=== PATIENT | female | born 1945 | race African-American/Black ===

== ENCOUNTER 2024-05-17 12:43 | Outpatient (AMB) | payer SELFPAY ==
--- NOTE | 2024-05-17 12:49 | A.OFFVIS_ITS ---
Vital Signs 05/17/24 13:02 Height 5 ft 2 in Weight 141 lb 12.116 oz BMI 25.9 BP 112/60 Blood Pressure Location Lt brachial Position Sitting Pulse 85 Pulse Source Pulse Oximeter Pulse Oximetry (%) 98 Oxygen Delivery Method Room Air Intake Visit Reasons: PMR/LM Intake Note: Patient presents for PMR. Tricot Knitting Machine Operator Required: Yes Tricot Knitting Machine Operator Services: Tricot Knitting Machine Operator Offered & Declined Tricot Knitting Machine Operator Name: Jaqueline Emerson Information Interpreted: non-clinical & clinical Display And Banner Designer: Display And Banner Designer Present Accompanied by: Daughter Allergies Penicillins Allergy (Mild, Verified 05/17/24 12:58) Unknown Medication List - Last Reconciled 05/17/24 by Chanel Rosales MD acetaminophen (Tylenol Extra Strength) 1,000 mg (2 x 500 mg) PO .every 12 hours 90 days amlodipine 10 mg PO DAILY diclofenac sodium 1% (Arthritis Pain (diclofenac)) 4 grams topical .twice a day 90 days rosuvastatin 20 mg PO BEDTIME HPI Comments Details: Patient is a 78-year-old female with CKD, hypertension and hyperlipidemia who presents for evaluation of myalgias. Reviewed [facility] note which was faxed over by PCP. She presented to [facility] ED 03/12/2024 with generalized myalgias and arthralgias reporting pain and discomfort in her hips, legs, feet and shoulders worsening over the last month. Worse while ambulating climbing stairs and standing. Notes that [place] from [facility]. In the ED she was given prednisone 15 mg out of concern for polymyalgia rheumatica. She was also given Flexeril. She followed up with her primary care who then referred her to Rheumatology for further evaluation. Patient notes that she has been having polyarthralgias for the past 10 years. She says it started with her left knee and then the pain extended into her left lower leg. Due to her pain on her left side she noted that she was abnormally favoring her right side and then the right knee started to have pain. Over the course of the next several years she noted intermittent knee pain intermittent hand pain and intermittent shoulder pain. She denies any stiffness in her shoulders or her thighs. She is able to comb her hair when she gets up in the morning she is able to dress herself without difficulty, she is also able to raise her hands above her head without difficulty. She is able to climb stairs although she has to hold on due to pain in her knee. Denies any temporal type headache or visual changes. Denies any history of swollen joints. Does recall that she was previously told that she may need to have her left knee replaced but she has been wary of that. [facility] Medical History (Updated 05/17/24 @ 13:32 by Chanel Rosales MD) Osteoarthritis involving multiple joints on both sides of body Ovarian cyst Family History (Updated 05/17/24 @ 13:01 by JULIET Bolanos) Father Hypertension Mother Hypertension Social History (Updated 05/17/24 @ 13:02 by JULIET Bolanos) Household Members: Family Housing: House Alcohol intake: never Patient Tobacco Use Status: Never used Tobacco Review of Systems Const Details: Review of Systems Constitutional: Denies fever, chills, weight loss ENT: Denies vision changes, eye pain or eye redness, dental caries, dry mouth GI: Denies nausea, vomiting, diarrhea, abdominal pain, change in BM Pulm: Denies SOB, RIVERA, hemoptysis, wheezing Cards: Denies chest pain, palpitations Skin: Denies Raynaud's, rash, nail changes, photosensitivity, MARKETING LIAISON: Denies headaches, weakness, paresthesias, recurrent falls MSK: Complains of joint pain and joint stiffness. Denies joint swelling, muscle weakness, bone pain All other systems reviewed and are unremarkable except noted above Physical Exam Vital Signs: Last Vital Signs Pulse 85 05/17/24 13:02 BP 112/60 05/17/24 13:02 Pulse Ox 98 05/17/24 13:02 Oxygen Delivery Method Room Air 05/17/24 13:02 BMI result Body Mass Index 25.9 Const Other: Physical Examination Patient well appearing and in no apparent painful distress Able to rise from chair without support. ?Gait normal. Constitutional Mucous membranes pink and moist patient alert and cooperative HEENT Conjunctiva and sclera clear. ?Pupils equal round and reactive to light. ?No lymphadenopathy. ?Normal dentition. Respiratory System Normal respiratory effort and able to speak in complete sentences. ?Clear to auscultation bilaterally. ?No crackles, rales, rhonchi, wheezes heard. Cardiac System Regular rate and rhythm. ?S1 and S2 heard no murmurs. ?Radial pulses intact bilaterally MSK No deformity, swelling, abnormalities noted to bilateral hands. ?No evidence of synovitis. ?Able to move all joints with full range of motion, without limitation. Results Reviewed Results Reviewed: No results available for viewing Assessment & Plan Assessment & Plan (1) Osteoarthritis involving multiple joints on both sides of body: Code(s): M15.9 - Polyosteoarthritis, unspecified Category: Medical Plan: #OA involving multiple joints Patient with likely osteoarthritis involving multiple joints. We will need to check x-rays of her knees, hips and shoulders. Unfortunately we do not have any inflammatory markers from when she went to the ED. We will check inflammatory markers as well as CMP today. Recommended physical therapy, topical diclofenac and Tylenol twice a day 1000 mg. We will see again in 4 months at that time we will make a determination of whether or not she would like to pursue intra-articular corticosteroid injection s Plan I spent 35 minutes reviewing the record and labs, seeing the patient, discussing the treatment plan and documenting in the medical record Orders: Orders Erythrocyte Sedimentation Rate Today M35.3 - Polymyalgia rheumatica Complete Blood Count Auto Diff Today M35.3 - Polymyalgia rheumatica C Reactive Protein Today M35.3 - Polymyalgia rheumatica XR hip LT min 2V Today M15.9 - Polyosteoarthritis, unspecified XR knee LT 3V Today M15.9 - Polyosteoarthritis, unspecified XR shoulder LT min 2V Today M15.9 - Polyosteoarthritis, unspecified XR hand wrist RT Today M15.9 - Polyosteoarthritis, unspecified XR hand wrist LT Today M15.9 - Polyosteoarthritis, unspecified Comprehensive Met. Panel Today M35.3 - Polymyalgia rheumatica Creatine Kinase Total Today M35.3 - Polymyalgia rheumatica XR hip RT min 2V Today M15.9 - Polyosteoarthritis, unspecified XR knee RT 3V Today M15.9 - Polyosteoarthritis, unspecified XR shoulder RT min 2V Today M15.9 - Polyosteoarthritis, unspecified PT Evaluation and Treatment Today M17.0 - Bilateral primary osteoarthritis of knee Medications: New acetaminophen (Tylenol Extra Strength) 1,000 mg (2 x 500 mg) PO .every 12 hours 90 days 1 tab 0RF diclofenac sodium 1% (Arthritis Pain (diclofenac)) apply to both knees, both hands and both shoulders twice a day 4 grams topical .twice a day 90 days 100 grams 3RF Coding Level of Care Code New Pt Level 3 (28533) Diagnoses Osteoarthritis involving multiple joints on both sides of body M15.9
[2024-05-17 13:02] VITALS: BP 112/60; PULSE 85; O2SAT 98; BMI 25.9
== END 2024-05-17 13:44 | disposition home or self-care (01) ==
PROVIDERS: PCP Student in an Organized Health Care Education/Training Program; Visit Provider Student in an Organized Health Care Education/Training Program
DX: M15.9 Polyosteoarthritis, unspecified (principal)
CPT/HCPCS: 99203

== ENCOUNTER → 2024-05-17 12:43 | Outpatient (BNVA) | payer MEDICAID, SELFPAY | LOC: CF 05-18 12:03 | PROVIDERS: PCP Student in an Organized Health Care Education/Training Program; Visit Provider Student in an Organized Health Care Education/Training Program | DX: M17.0 Bilateral primary osteoarthritis of knee (principal); M15.9 Polyosteoarthritis, unspecified; M35.3 Polymyalgia rheumatica | CPT/HCPCS: 99202 ==

== ENCOUNTER 2024-05-18 12:04 | Outpatient (REF) | payer MEDICAID, OTHER, SELFPAY ==
[2024-05-18 12:19] LABS: MANUAL DIFF FLAG NO
[2024-05-18 12:26] LABS: Basophils Percent Auto 0.8 % (0-2); Eosinophils Absolute Auto 0.1 X10*3/uL (0.0-0.4); Hematocrit 35.3 % (37.0-47.0); Hemoglobin 11.9 g/dl (12.0-16.0); Imm Gran Abs Auto 0.01 X10*3/uL (0.00-0.03); Imm Gran Pct Auto 0.2 % (0.0-0.4); Lymphocytes Absolute Auto 2.3 X10*3/uL (1.2-4.9); Lymphocytes Percent Auto 46.7 % (20-40); Mean Corpuscular HGB Conc 33.7 g/dl (31.0-35.0); Mean Corpuscular Hemoglobin 29.3 pg (27.0-33.0); Mean Corpuscular Volume 86.9 fL (80.0-98.0); Mean Platelet Volume 9.9 fL (9.4-12.3); Monocytes Absolute Auto 0.3 X10*3/uL (0.1-1.2); Monocytes Percent Auto 6.3 % (2-11); Neutrophils Absolute Auto 2.2 x10*3/uL (2.0-8.3); Platelet Count 193 X10*3/uL (160-400); Red Blood Count 4.06 X10*6/uL (4.20-5.50); Red Cell Distribution Width 12.1 % (11.0-16.0); White Blood Count 4.9 X10*3/uL (4.8-10.8)
[2024-05-18 12:52] LABS: Alanine Aminotransferase 11 U/L (0-31); Albumin Level 4.7 g/dL (3.5-5.0); Alkaline Phosphatase 65 U/L (39-117); Anion Gap 12 (12-20); Aspartate Amino Transferase 21 U/L (5-31); Bilirubin Total 0.6 mg/dL (0.0-1.0); Blood Urea Nitrogen 7 mg/dL (9-16); C Reactive Protein 0.11 mg/dL (< or = 0.50); Calcium 10.1 mg/dL (8.4-10.2); Carbon Dioxide 30 mmol/L (22-29); Chloride 105 mmol/L (96-108); Estimated Glomerular Filt Rate 49; Glucose Random 104 mg/dL (60-115); Potassium 3.8 mmol/L (3.3-5.1); Sodium 143 mmol/L (135-145); Total Protein 7.9 g/dL (6.5-8.0)
[2024-05-18 13:05] LABS: Erythrocyte Sedimentation Rate 23 MM/HR (0-20)
== END 2024-05-18 12:05 | disposition home or self-care (01) ==
LOC: HO.XRAY 12:04
PROVIDERS: PCP Student in an Organized Health Care Education/Training Program; Visit Provider Student in an Organized Health Care Education/Training Program
DX: M35.3 Polymyalgia rheumatica (principal); M15.9 Polyosteoarthritis, unspecified
CPT/HCPCS: 36415; 73030; 73110; 73130; 73502; 73562; 80053; 82550; 85025; 85652; 86140

== ENCOUNTER 2024-06-22 13:15 | Outpatient (RCR) | payer MEDICAID, OTHER, SELFPAY | END 2024-09-12 08:55 | disposition home or self-care (01) | LOC: HO.PT 13:15 | PROVIDERS: PCP Student in an Organized Health Care Education/Training Program; Visit Provider Student in an Organized Health Care Education/Training Program | DX: M17.0 Bilateral primary osteoarthritis of knee (principal) ==

== ENCOUNTER 2024-06-29 14:51 | Outpatient (RCR) | payer MEDICAID, OTHER, SELFPAY ==
--- NOTE | 2024-06-29 15:53 | MHC.PT.EP ---
[facility] [place] [facility] [place] [facility] [place] Office [address] Jayden Clifford [address] [phone] F: [phone] F: [phone] F: [phone] F: [phone] Physical Therapy Plan of Care Date of Evaluation: 06/29/24 Date of Surgery: N/A Diagnosis: bilateral primary osteoarthritis of knees (RL) Assessment: pt is a 78 y/o female presenting to physical therapy w/ referring diagnosis of bilateral primary osteoarthritis of knees. Impairments include pain, decreased range of motion, decreased strength, impaired functional mobility, impaired postural awareness, and altered ambulation mechanics. pt is a good candidate for skilled PT due to age, potential remediation of impairments, typical disease/condition progression and prognosis, comorbidities, and motivation. pt would benefit from skilled PT intervention to provide a tailored strengthening and stretching exercise program, functional training, gait training, postural re-training, neuromuscular re-education, modalities as needed for pain, equipment safety demonstration. Frequency and Duration: The patient will be seen 2x/wk for 4 wks Short Term Goals: pt will be I w/ HEP to promote self-management of condition. pt will improve R knee extension to 0 degrees to promote ease in standing posture. Swimming Pool Attendant Goals: pt will report a statistically significant improvement in self-reported outcome measure, LEFI, to promote return to PLOF. pt will report <4/10 B knee pain w/ standing for >20 minutes to promote return to sales & service associate. Treatment Plan: Modalities to reduce pain, spasms and effusion. Manual therapy to restore motion and function. Therapeutic exercise to improve strength and flexibility. Neuromuscular re-education for posture and balance. Therapeutic activities to return to functional activities of daily living. Electronically signed by: Laurence Daswon PT, DPT Please sign and return to therapist. Thank you for your referral.
--- NOTE | 2024-07-24 15:28 | MHC.PT.DC ---
[facility] [place] Office [place] Office [place] Office [address] Jayden Clifford 140 [facility] [phone] F: [phone] F: [phone] F: [phone] F: [phone] Physical Therapy Discharge Report Diagnosis: bilateral primary osteoarthritis of knees (RL) Date of Surgery: N/A Date of Evaluation: 06/29/24 Date of Discharge: 07/24/24 Treatments to Date: 1 Cancellations to Date: 0 No Shows to Date: 0 Discharge Status: Visit Non-compliance Discharge Summary: The patient never scheduled any follow-up appointments after her initial evaluation. It has been 25 days. She is being discharged for non-compliance. Electronically signed by: Laurence Dawson PT, DPT Please sign and return to therapist. Thank you for your referral.
== END 2024-07-24 15:29 | disposition home or self-care (01) ==
LOC: HO.PT 14:51
PROVIDERS: PCP Student in an Organized Health Care Education/Training Program; Visit Provider Student in an Organized Health Care Education/Training Program
DX: M17.0 Bilateral primary osteoarthritis of knee (principal)
CPT/HCPCS: 97161

== ENCOUNTER 2024-11-09 11:00 | Outpatient (AMB) | payer MEDICAID, SELFPAY ==
--- NOTE | 2024-11-09 11:00 | A.OFFVIS_ITS ---
Vital Signs 11/09/24 11:12 Height 5 ft 2 in Weight 139 lb 12.369 oz BMI 25.6 BP 115/60 Blood Pressure Location Lt brachial Position Sitting Pulse 80 Pulse Source Pulse Oximeter Pulse Oximetry (%) 98 Oxygen Delivery Method Room Air Intake Visit Reasons: cortisone injection Intake Note: Patient presents today for Cortisone injection. Allergies Penicillins Allergy (Mild, Verified 11/09/24 11:10) Unknown Medication List - Last Reconciled 11/09/24 by Chanel Rosales MD acetaminophen (Tylenol Extra Strength) 1,000 mg (2 x 500 mg) PO .every 12 hours 90 days amlodipine 10 mg PO DAILY cefpodoxime 100 mg PO Q12H diclofenac sodium 1% 4 grams topical QID omega-3 acid ethyl esters 2 caps PO DAILY rosuvastatin 20 mg PO BEDTIME HPI Comments Details: Patient is a 78-year-old female with CKD, hypertension, hyperlipidemia and polyarticular OA here today for follow up Interval History: Patient last seen 05/17/2024. At that time she was establishing care for the management of polyarthralgias. Exam and history was consistent with osteoarthritis She was given instructions to use topical diclofenac and labs were sent. X-rays consistent with osteoarthritis and there was no evidence of elevated inflammatory markers. Patient unfortunately did not use the topical diclofenac as prescribed Continues to complain of knee pain and hip pain Rheumatologic History: Initial history by me: Reviewed [facility] note which was faxed over by PCP. She presented to [facility] ED 03/12/2024 with generalized myalgias and arthralgias reporting pain and discomfort in her hips, legs, feet and shoulders worsening over the last month. Worse while ambulating climbing stairs and standing. Notes that [place] from [facility]. In the ED she was given prednisone 15 mg out of concern for polymyalgia rheumatica. She was also given Flexeril. She followed up with her primary care who then referred her to Rheumatology for further evaluation. Patient notes that she has been having polyarthralgias for the past 10 years. She says it started with her left knee and then the pain extended into her left lower leg. Due to her pain on her left side she noted that she was abnormally favoring her right side and then the right knee started to have pain. Over the course of the next several years she noted intermittent knee pain intermittent hand pain and intermittent shoulder pain. She denies any stiffness in her shoulders or her thighs. She is able to comb her hair when she gets up in the morning she is able to dress herself without difficulty, she is also able to raise her hands above her head without difficulty. She is able to climb stairs although she has to hold on due to pain in her knee. Denies any temporal type headache or visual changes. Denies any history of swollen joints. Does recall that she was previously told that she may need to have her left knee replaced but she has been wary of that. Current Rheumatology Medication(s): Topical diclofenac 1% [facility] Medical History (Updated 05/17/24 @ 13:32 by Chanel Rosales MD) Osteoarthritis involving multiple joints on both sides of body Ovarian cyst Family History Father Hypertension Mother Hypertension Social History Household Members: Family Housing: House Alcohol intake: never Patient Tobacco Use Status: Never used Tobacco Review of Systems Const Details: Review of Systems Constitutional: Denies fever, chills, weight loss ENT: Denies vision changes, eye pain or eye redness, dental caries, dry mouth GI: Denies nausea, vomiting, diarrhea, abdominal pain, change in BM Pulm: Denies SOB, RIVERA, hemoptysis, wheezing Cards: Denies chest pain, palpitations Skin: Denies Raynaud's, rash, nail changes, photosensitivity, MARITIME PILOT: Denies headaches, weakness, paresthesias, recurrent falls MSK: as per HPI All other systems reviewed and are unremarkable except noted above Physical Exam Vital Signs: Last Vital Signs Pulse 80 11/09/24 11:12 BP 115/60 11/09/24 11:12 Pulse Ox 98 11/09/24 11:12 Oxygen Delivery Method Room Air 11/09/24 11:12 BMI result Body Mass Index 25.6 Vital signs reviewed Physical Examination CONSTITUITIONAL Patient alert and cooperative. Well appearing and in no apparent painful distress HEENT Conjunctiva and sclera clear. ?Pupils equal round and reactive to light. ?No lymphadenopathy. ? CHEST/RESPIRATORY SYSTEM Normal respiratory effort and able to speak in complete sentences. ?Clear to auscultation bilaterally. ?No crackles, rales, rhonchi, wheezes heard. CARDIAC SYSTEM Regular rate and rhythm. ?S1 and S2 heard no murmurs. ?Radial pulses intact bilaterally MSK Hands: ?Good cleaning validation consultant strength bilaterally. No deformities noted. ?No synovitis noted to the MCPs, PIPs or DIPs. ?No tenderness to palpation of these joints. Prominent [place]berden nodes Wrists: ?Full range of motion at the wrists without pain. ?No tenderness to palpation or synovitis noted to the wrists. Elbows: Full range of motion without pain. No tenderness, weakness, swelling, increased warmth or erythema. Shoulders: Full range of motion without pain. No tenderness, weakness, swelling, increased warmth or erythema. Hips: Pain with range of motion bilateral hips Knees: ?Full range of motion. ?No tenderness, swelling, increased warmth or erythema.? Crepitations felt Ankles: Full range of motion. ?No tenderness, swelling, increased warmth or erythema.? Feet: ?Negative squeeze test. ?No tenderness to palpation or swelling of the MTPs. Tender points:?No tenderness to palpation of the bilateral trapezius, supraspinatus, greater trochanters, anterior costochondral junctions, bilateral gluteal areas, bilateral suboccipital muscle insertions SKIN Skin intact without rashes. Office Procedures AMB Joint Injection/Aspiration Joint Injection/Aspiration Details: Procedure was explained to the patient and consent was obtained. ? The area of interest was identified and confirmed with patient. ?This was subsequently cleaned with chlorhexidine x3. ? The area was then anesthetized using ethyl chloride spray. 40 mg Kenalog with 1 cc 1% lidocaine was injected without issue. ?Minimal to no bleeding. ?Patient tolerated procedure. Primary Site: right knee Prep: site was prepped using aseptic technique and ethochloride spray was applied Injected: 40 mg of, Kenalog, with 1 mL of, 1% plain lidocaine and in the joint Approach Used: anterior Procedure: The patient tolerated the procedure well Coding 10978 - Large joint Procedure code (CPT) selection complete AMB Joint Injection/Aspiration Joint Injection/Aspiration Details: Procedure was explained to the patient and consent was obtained. ? The area of interest was identified and confirmed with patient. ?This was subsequently cleaned with chlorhexidine x3. ? The area was then anesthetized using ethyl chloride spray. 40 mg Kenalog with 1 cc 1% lidocaine was injected without issue. ?Minimal to no bleeding. ?Patient tolerated procedure. Primary Site: left knee Prep: site was prepped using aseptic technique and ethochloride spray was applied Injected: 40 mg of, Kenalog, with 1 mL of, 1% plain lidocaine and in the joint Approach Used: anterior Procedure: The patient tolerated the procedure well Coding 68064 - Large joint Procedure code (CPT) selection complete Office Meds lidocaine (PF) 10 mg/mL (1 %) injection solution Performing Provider: Chanel Rosales MD Performing Location: [facility] Rheumatology Administered by: Chanel Rosales MD on 11/09/24 13:46 Dose Route Admin Location Dispensed Lot Number Expiration Date [facility] [employer] 1 mL Infiltration right 2 mL [id number] 11/07/26 21535-001-57 [employer] Kenalog 40 mg/mL suspension for injection Performing Provider: Chanel Rosales MD Performing Location: [facility] Rheumatology Administered by: Chanel Rosales MD on 11/09/24 13:46 Dose Route Admin Location Dispensed Lot Number Expiration Date [facility] [employer] 40 mg intra-articular right knee 1 mL [id number] 02/06/26 [address]-0 [employer] lidocaine (PF) 10 mg/mL (1 %) injection solution Performing Provider: Chanel Rosales MD Performing Location: [facility] Rheumatology Administered by: Chanel Rosales MD on 11/09/24 13:46 Dose Route Admin Location Dispensed Lot Number Expiration Date [facility] [employer] 1 mL Infiltration left knee 2 mL [id number] 11/07/26 02266-667-92 [employer] Kenalog 40 mg/mL suspension for injection Performing Provider: Chanel Rosales MD Performing Location: [facility] Rheumatology Administered by: Chanel Rosales MD on 11/09/24 13:46 Dose Route Admin Location Dispensed Lot Number Expiration Date [facility] [employer] 40 mg intra-articular left knee 1 mL [id number] 02/06/26 [address]-6 [employer] Results Reviewed Results Reviewed: Laboratory Tests 05/18/24 12:17 WBC 4.9 RBC 4.06 L Hgb 11.9 L Hct 35.3 L Plt Count 193 ESR 23 H Sodium 143 Potassium 3.8 Chloride 105 Carbon Dioxide 30 H BUN 7 L Creatinine 1.09 Total Bilirubin 0.6 AST 21 ALT 11 Alkaline Phosphatase 65 Total Creatine Kinase 142 H C-Reactive Protein 0.11 XR Bilateral Shoulders 05/2024 FINDINGS: No fracture or dislocation. Moderate degenerative change in the glenohumeral joint with joint space narrowing and bony spurring. Moderate degenerative change in the acromioclavicular joint. Visualized right lung is clear. IMPRESSION: Moderate degenerative change in the right shoulder. FINDINGS: No fracture. Moderate to severe degenerative changes in the glenohumeral joint with joint space narrowing in bulky osteophyte formation. There is subchondral sclerosis. Degenerative changes in the acromioclavicular joint. IMPRESSION: Moderate to severe degenerative changes in the left shoulder. XR Bilateral Knees 05/2024 FINDINGS: There is no fracture or dislocation. Advanced degenerative change in the right knee greatest in the medial compartment with complete joint space loss and bulky osteophyte formation and subchondral sclerosis and cystic change. Moderate degenerative change in the patellofemoral compartment. IMPRESSION: Advanced degenerative change in the right knee greatest in the medial compartment. FINDINGS: No fracture or dislocation. Small suprapatellar joint effusion. Moderate to severe degenerative change in the left knee greatest in the medial compartment and patellofemoral compartment with significant joint space narrowing and bulky tricompartmental osteophyte formation. Sclerotic lesion in the tibial metaphysis may reflect a bone infarct IMPRESSION: Moderate to severe degenerative change in the left knee greatest in the medial compartment and patellofemoral compartment. Small suprapatellar joint effusion. XR Bilateral Hips 05/2024 FINDINGS: No fracture. Alignment is anatomic. Hip joint space is moderately narrowed with subchondral sclerosis and bony spurring. Soft tissues are unremarkable. IMPRESSION: Moderate degenerative change in the right hip. FINDINGS: No fracture. Alignment is anatomic. Hip joint space is mildly narrowed. Soft tissues are unremarkable. IMPRESSION: Mild degenerative change in the left hip. XR Bilateral Hands 05/2024 FINDINGS: The bones and soft tissues are normal. No fracture. Alignment is anatomic. Joint spaces are maintained. No erosions or soft tissue calcifications. IMPRESSION: Normal radiographs of the hand and wrist. Assessment & Plan Assessment & Plan (1) Osteoarthritis involving multiple joints on both sides of body: Code(s): M15.9 - Polyosteoarthritis, unspecified Category: Medical Plan: #Polyarticular OA Patient is a 79 y.o female with polyarticular OA. s/p bilateral knee steroid injections today Plan - RTC 4 months - US inj bilateral hips for hip OA - Continue diclofenac gel 1% qid Plan I spent 22 minutes reviewing the record and labs, taking a history, examining the patient, discussing the treatment plan, ordering diagnostic work up and documenting in the medical record Orders: Orders US guided asp or inj major jt 4 Weeks M16.0 - Bilateral primary osteoarthritis of hip AMB Joint Injection/Aspiration Today M17.0 - Bilateral primary osteoarthritis of knee AMB Joint Injection/Aspiration Today M17.0 - Bilateral primary osteoarthritis of knee Coding Level of Care Code Est Pt Level 3 (08617) Diagnoses Osteoarthritis involving multiple joints on both sides of body M15.9 CPT Codes Coding - 00161 Large joint: 76429 - Large joint ([id number]) Coding - 06723 Large joint: 41987 - Large joint ([id number])
[2024-11-09 11:12] VITALS: BP 115/60; PULSE 80; O2SAT 98; BMI 25.6
--- OUTSIDE RECORDS SUMMARY | 2024-11-09 12:21 | XMS_ITS ---
Author Organization [facility] Address [address] [address] Care Team Providers Care Satellite Manager Name Role Phone Marie Shaw PA-C Primary Care Provider [phone] [id number] [facility] Program Status:Enrolled (Active) Start date:12/07/2023 Enrollment date:12/07/2023 Case Team Name Relationship Phone Marie Lopez LPN (Responsible Staff) Continued Care and Services Coordination
--- OUTSIDE RECORDS SUMMARY | 2024-11-09 12:21 | XMS_ITS | Clinical Summary ---
Author Organization [facility] Address [address] [address] Phone Care Team Providers Care Temperer Name Role Phone Marie Shaw Primary Care Provider [phone] Allergies Active Allergy Reactions Criticality Noted Date Comments Penicillin G 01/21/2024 Medications amLODIPine (NORVASC) 10 MG tablet Take 10 mg by mouth in the morning. 01/17/2024 Active rosuvastatin (CRESTOR) 20 MG tablet Take 1 tablet by mouth every night 01/17/2024 Active omega-3 acid ethyl esters (LOVAZA) 1 g capsule Take 2 g by mouth in the morning and 2 g in the evening. Active Active Problems Problem Noted Date Diagnosed Date Obese class I 01/21/2024 Stage 3a chronic kidney disease 01/21/2024 Chronic kidney disease stage 3B 01/18/2024 Essential (primary) hypertension 11/01/2023 Encounters Date Type Department Care Team Description 10/24/2024 1:15 PM EDT [facility] Visit [facility] [address] [address] Gale Bernard ARNP Stage 3a chronic kidney disease (HCC) (Primary Dx); Essential (primary) hypertension 10/09/2024 Orders Only [facility] [address] [address] Gale Bernard ARNP 10/07/2024 Orders Only [facility] [address] [address] Gale Bernard ARNP Stage 3a chronic kidney disease (HCC); Essential (primary) hypertension from Last 3 Months Immunizations Name Administration Dates Next Due Pneumococcal Conjugate Pcv 20 12/01/2023 Shingrix 12/01/2023 Tdap 11/01/2023 Family History Medical History Relation Comments Cancer Brother Hypertension Father Hypertension Mother Relation Status Comments Brother Father Mother Social History Tobacco Use Types Packs/Day Years Used Date Smoking Tobacco: Never Smokeless Tobacco: Never Tobacco Cessation:Counseling Given: Not Answered Alcohol Use Standard Drinks/Week Comments Never 0 (1 standard drink = 0.6 oz pur e alcohol) Comments Unknown Sex and Gender Information Value Date Recorded Sex Assigned at Not on file Legal Sex Female 10:30 AM EDT Gender Identity Not on file Sexual Orientation Not on file Last Filed Vital Signs Vital Sign Reading Time Taken Comments Blood Pressure 118/68 10/24/2024 1:41 PM EDT Pulse 71 10/24/2024 1:27 PM EDT Temperature - - Respiratory Rate - - Oxygen Saturation 97% 01/21/2024 11:48 AM EDT Inhaled Oxygen Concentration - - Weight 62.6 kg (138 lb) 10/24/2024 1:27 PM EDT Height - - Body Mass Index - - Plan of Treatment Upcoming Encounters Date Type Department Care Team (Late st Contact Info) Description 04/26/2025 1:15 PM EDT Office Visit [facility] P.. [address] [address] Gale Bernard ARNP [address] [address] Health Maintenance Due Date Last Done Comments Pneumococcal Vaccine: 65+ Years Completed Influenza Vaccine Completed 05/04/2024 Hepatitis B Vaccine Aged Out No longe r eligible based on patient's age to complete this topic Procedures Procedure Name Priority Date/Time Associated Diagnosis Comments PTH, INTACT Routine 10/09/2024 10:22 AM EST PROTEIN / CREATININE RATIO, URINE Routine 10/09/2024 10:22 AM EST CBC Routine 10/09/2024 10:22 AM EST RENAL FUNCTION PANEL Routine 10/09/2024 10:22 AM EST from Last 3 Months Results * Protein, Total, Random Urine w/Creatinine (Protein/Creat Ratio) (10/09/2024 10:22 AM EST) Creatinine, Ur 40.2 Not Estab. mg/dL [facility] Protein, Ur 4.2 Not Estab. mg/dL [facility] Urine Protein/Creatin ine Ratio 104 0 - 200 mg/g creat [facility] 10/09/2024 10:2 2 AM EST 10/09/[address] [facility] URINE ORDERABLES Final Result [facility] [address] [place] [address] * CBC (10/09/2024 10:22 AM EST) WBC 6.0 3.4 - 10.8 x10E3/uL [facility] RBC 4.24 3.77 - 5.28 x10E6/uL [facility] Hemoglobin 12.3 11.1 - 15.9 g/dL [facility] Hematocrit 37.2 34.0 - 46.6 % [facility] MCV 88 79 - 97 fL [facility] MCH 29.0 26.6 - 33.0 pg [facility] MCHC 33.1 31.5 - 35.7 g/dL [facility] RDW 12.3 11.7 - 15.4 % [facility] Platelets 226 150 - 450 x10E3/uL [facility] 10/09/2024 10:2 2 AM EST 10/09/2024 [facility] LAB BLOOD ORDERABLES Final Result Performing Organization Address City/[facility]/ZIP Co de Phone Number [facility] [address] [place] [address] * PTH, Intact (10/09/2024 10:22 AM EST) Pathologist [facility] PTH 34 15 - 65 pg/mL [facility] 10/09/2024 10:2 2 AM EST 10/09/2024 [facility] Final Result Performing Organization Address [facility]/ZIP Co de Phone Number [facility] [address] [place] [address] * (ABNORMAL) Renal Function Panel (10/09/2024 10:22 AM EST) Pathologist [facility] Glucose 98 70 - 99 mg/dL [facility] BUN 11 8 - 27 mg/dL [facility] Creatinine 1.24(H) 0.57 - 1.00 mg/dL [facility] eGFR CKD-EPI CR 2020 45(L) >59 mL/min/1.7 3 [facility] BUN/Creatinine Ratio 9(L) 12 - 28 [facility] Sodium 142 134 - 144 mmol/L [facility] Potassium 4.4 3.5 - 5.2 mmol/L [facility] Chloride 101 96 - 106 mmol/L [facility] Bicarbonate (CO2) 25 20 - 29 mmol/L [facility] Calcium 9.9 8.7 - 10.3 mg/dL [facility] Albumin 5.1(H) 3.8 - 4.8 g/dL [facility] Phosphorus 4.0 3.0 - 4.3 mg/dL [facility] 10/09/2024 10:2 2 AM EST 10/09/2024 Gale Bernard [facility] LAB BLOOD ORDERABLES Final Result [facility] [address] [place] [address] from Last 3 Months Insurance MEDICAID [place] Care Teams Temperer Relationship Specialty Start Date End Date Marie Shaw [address] [place] [phone] PCP - General 04/24/24
--- OUTSIDE RECORDS SUMMARY | 2024-11-09 12:21 | XMS_ITS | Clinical Summary ---
Author Organization [facility] Address [address] [place] [address] Care Team Providers Care Home Paraprofessional Name Role Phone Unavailable Primary Care Provider Unavailabl e Social History Tobacco Use Types Packs/Day Years Used Date Smoking Tobacco: Never Assessed Comments Unknown Sex and Gender Information Value Date Recorded Sex Assigned at Not on file Legal Sex Female 1:38 PM EDT Gender Identity Not on file Sexual Orientation Not on file Plan of Treatment Health Maintenance Due Date Last Done Comments DTaP,Tdap,and Td Vaccines (1 - Tdap) 1964 Pneumococcal Vaccine: 50+ Ye ars (1 of 1 - PCV) 1996 Zoster Vaccines (1 of 2) 1996 RSV Immunization Adult Patie nts (1 - 1-dose 75+ series) 2021 Depression Screening 03/01/2024 Falls Risk Assessment 03/01/2024 Hepatitis C Screening 03/01/2024 Osteoporosis Screening (Bone Density Screening) 03/01/2024 Social Influencers of Health Screening 03/01/2024 COVID-19 Vaccine ( - 2023-2 5 season) 2024 Influenza Vaccine (#1) 2024 HIB Vaccines Aged Out No longer eligi ble based on patient's age to complete this topic HPV Vaccines Aged Out No longer eligi ble based on patient's age to complete this topic Hepatitis A Vaccines Aged Out No long er eligible based on patient's age to complete this topic Hepatitis B Vaccines Aged Out No long er eligible based on patient's age to complete this topic IPV Vaccines Aged Out No longer eligi ble based on patient's age to complete this topic MMR Vaccines Aged Out No longer eligi ble based on patient's age to complete this topic Meningococcal ACWY Vaccine Aged Out N o longer eligible based on patient's age to complete this topic Meningococcal B Vacine Aged Out No lo nger eligible based on patient's age to complete this topic RSV Immunization Patients Un venkatesh 20 months Aged Out No longer eligible b ased on patient's age to complete this topic Varicella Vaccines Aged Out No longer eligible based on patient's age to complete this topic
--- OUTSIDE RECORDS SUMMARY | 2024-11-09 12:21 | XMS_ITS | Clinical Summary ---
Author Organization [facility] Address [address] [place] [address] Care Team Providers Care Per Diem Name Role Phone Marie Shaw PA-C Primary Care Provider [phone] Source Comments PLEASE NOTE, if this patient is a minor, it may be UNLAWFUL to discuss sensitive information that is contained in these records (such as FAMILY PLANNING, MENTAL HEALTH or SUBSTANCE ABUSE) with the minor patient's parent or other person without the patient's specific authorization.[facility] Allergies No known active allergies Medications blood pressure test kit-large Check BP 1 x daily. 1 Kit 12/07/19 24 Active carbamide peroxide (DEBROX) 6.5 % otic solutionIndicati ons:Impacted cerumen of left ear Place 5 Drops into the left ear 2 (two) times daily 15 mL 02/01/20 24 Active amLODIPine (NORVASC) 10 mg tabletIndication s:Essential (primary) hypertension Take 1 Tablet by mouth once daily 30 Tablet 2 09/18/19 25 Active rosuvastatin (CRESTOR) 20 mg tabletIndication s:High cholesterol Take 1 Tablet by mouth nightly at bedtime 30 Tablet 2 09/18/19 25 Active acetaminophen (TYLENOL EXTRA STRENGTH) 500 mg tabletIndication s:Polyarthralgia Take 1 Tablet by mouth every 4 (four) hours as needed for pain 90 Tablet 09/18/19 25 Active diclofenac sodium (VOLTAREN) 1 % gelIndications:P olyarthralgia Apply 4 g topically 2 (two) times daily 200 g 1 09/18/19 25 Active omega-3 acid ethyl esters (LOVAZA) 1 gram capsuleIndicatio ns:High cholesterol TAKE TWO CAPSULES BY MOUTH EVERY DAY 90 Capsule 1 10/19/19 25 Active omega-3 acid ethyl esters (LOVAZA) 1 gram capsuleIndicatio ns:High cholesterol Take 2 Capsules by mouth once daily 90 Capsule 1 09/18/19 25 025 Discontinued Active Problems Problem Noted Date Diagnosed Date Chest pain 07/05/2024 Overview (07/05/2024): 06/30/2024 - [facility] Cardiology - Assessment/Plan: 1) Chest Pain - possible CAD given history of HTN and age Plan: Nuclear stress test / EKG 2) Hypertension: under good control - murmur appreciated during cardiac exam Plan: Continue with amlodipine 5 mg daily - Echocardiogram CKD stage 3a, GFR 45-59 ml/min ([facility]) 024 Overview (04/26/2024): 04/24/2024 - [facility] - Nephrology consult - Dx: 1) CKD stage 3a d/t HTN Nephrosclerosis: Resolved SOCRATES, Serum Cr now at BL 1.0 w/normal lytes 2) HTN: well controlled target <130/80 Stage 3b chronic kidney disease ([facility]) 2023 History of mammogram 11/12/2023 Overview (11/12/2023): 11/09/2023 - Mammogram - Impression: No mammographic evidence of malignancy. Recommendation: Annual mammographic screening. BI-RADS: 1 (negative) Essential (primary) hypertension 11/01/2023 Overview (07/05/2024): 06/30/2024 - [facility] Cardiology - Assessment/Plan: 1) Chest Pain - possible CAD given history of HTN and age Plan: Nuclear stress test / EKG 2) Hypertension: under good control - murmur appreciated during cardiac exam Plan: Continue with amlodipine 5 mg daily - Echocardiogram High cholesterol 11/01/2023 Encounters Date Type Department Care Team Description 11/01/2024 10:00 AM EDT Office Visit [address] [address] Marie Lopez LPN BP check (Primary Dx) 09/18/2024 10:40 AM EST Office Visit [address] [address] Marie Shaw PA-C Polyarthralgia (Primary Dx); Essential (primary) hypertension; High cholesterol; Chest pain on exertion; CKD stage 3a, GFR 45-59 ml/min ([facility]) 08/21/2024 10:40 AM EST Office Visit [address] [address] Marie Lopez LPN BP check (Primary Dx) 08/21/2024 Travel 08/14/2024 Travel from Last 3 Months Immunizations Immunization Administration Dates Next Due Influenza (FLUZONE), high-dose, trivalent, PF PNEUMOCOCCAL CONJUGATE PCV 20 (Prevnar) 12/01/19 Pfizer COVID-19 (Comirnaty), Mrna, Lnp-s, Pf, Jeffrey-sucrose, 30 Mcg/0.3 Ml, 12yr+ 12/09/2023 TDAP 11/01/2023 ZOSTER VACCINE, RECOMBINANT (SHINGRIX) 4,12/01/2023 Family History Medical History Relation Name Comments Hypertension Daughter 1 Hypertension Father No Known Problems Maternal Grandfather No Known Problems Maternal Grandmother Hypertension Mother No Known Problems Paternal Grandfather No Known Problems Paternal Grandmother Relation Name Status Comments Brother Alive Daughter 1 Alive Daughter 2 Alive Father Maternal Grandfather Maternal Grandmother Mother Paternal Grandfather Paternal Grandmother Sister Alive Son 1 Alive Son 2 Alive Social History Tobacco Use Types Packs/Day Years Used Date Smoking Tobacco: Never Passive Smoke Exposure: Never Smokeless Tobacco: Never Tobacco Cessation:Counseling Given: Not Answered Alcohol Use Standard Drinks/Week Comments Never 0 (1 standard drink = 0.6 oz pur e alcohol) Social Connections Answer Date Recorded Connectedness 1 11/01/2023 Financial Resource Strain Answer Date R ecorded Financial Resource Strain 1 2023 Stress Answer Date Recorded Stress 1 11/01/2023 Physical Activity Answer Date Recorded Physical Activity 0 10/28/2023 Food Insecurity Answer Date Recorded Food 1 11/01/2023 Transportation Needs Answer Date Record ed Transportation 1 11/01/2023 Housing Stability Answer Date Recorded Housing 1 11/01/2023 Safety and Environment Answer Date Papo rded Safety 1 11/01/2023 Utilities Answer Date Recorded Utilities 1 11/01/2023 Employment Answer Date Recorded Stress 0 11/01/2023 Comments No Sex and Gender Information Value Date Recorded Sex Assigned at Female 11/01/2023 2:01 PM PDT Legal Sex Female 11:57 AM PST Gender Identity Female 11/01/2023 2:01 PM PDT Sexual Orientation Straight 11/01/2023 2: 01 PM PDT Last Filed Vital Signs Vital Sign Reading Time Taken Comments Blood Pressure 110/60 11/01/2024 10:17 AM EDT Pulse 70 11/01/2024 10:17 AM EDT Temperature 36.7 ??C (98 ??F) 09/18/2024 10:53 AM EST Respiratory Rate 16 09/18/2024 10:53 AM EST Oxygen Saturation 100% 09/18/2024 10:53 AM EST Inhaled Oxygen Concentration - - Weight 65.3 kg (144 lb) 05/04/2024 10:38 AM EDT Height 154.9 cm (5' 1 ) 09/18/2024 10:53 AM EST Body Mass Index 25.51 05/04/2024 10:38 AM EDT Plan of Treatment Upcoming Encounters Date Type Department Care Team (Late st Contact Info) Description 11/10/2024 10:20 AM EDT Office Visit [facility] [address] [place] [phone] Marie Shaw PA-C [address] [place] [address] 12/06/2024 10:00 AM EDT Office Visit [facility] [address] [place] [phone] Marie Lopez LPN [phone] [place] [address] Health Maintenance Due Date Last Done Comments Bone Density Screening 2011 Falls Prevention 2011 [id number] ( season) 2024 024 Alcohol and Drug Screen 08/09/2024 11/01/2023 Depression Annual Screen 08/09/2024 11/01/2023 Annual Preventive Care Visit 10/31/2024 11/01/2023 Tobacco Screening 09/18/2025 09/18/2024 Diabetes Screening 09/18/2027 09/18/2024, 0 05/04/2024, 03/21/2024, Additional history exists Imm-DTaP/Tdap/Td (2 - Td or Tdap) 10/31/2033 024 Hepatitis C Screening Completed 11/01/2023 Imm-Pneumococcal 65+ Completed 12/01/2023 Imm-Zoster, Recombinant Completed 02/01/2024, 11/30 Imm-Influenza Completed 05/04/2024 Goals Goal Patient Goal Type Associated Problems Recent Progress Patient-Stated? Author Blood Pressure < 140/90 Blood Pressure 110/60( 025 10:17 AM EDT) No Marie Lopez LPN Hypertension: Decrease sodium intake General No Marie Lopez LPN Procedures Procedure Name Priority Date/Time Associated Diagnosis Comments BLOOD COUNT COMPLETE AUTO&AUTO DIFRNTL WBC Routine 09/18/2024 11:26 AM EST Essential (primary) hypertension High cholesterol TSH W/RFLX FREE T4 Routine 09/18/2024 11 :26 AM EST Essential (primary) hypertension High cholesterol LIPID PANEL Routine 09/18/2024 11:26 AM EST Essential (primary) hypertension High cholesterol COMPREHENSIVE METABOLIC PANEL Routine 09/18/2024 11:26 AM EST Essential (primary) hypertension High cholesterol CKD stage 3a, GFR 45-59 ml/min ([facility]) HEPATITIS C AB W/RFLX HCV RNA, QT, RT PCR Routine 11/01/2023 1:48 PM EDT Essential (primary) hypertension Physical exam from Last 3 Months or Most Recently Relevant to Health Maintenance Results * TSH W/RFLX FREE T4 (09/18/2024 11:26 AM EST) Pathologist [facility] TSH W/REFLEX TO FT4 0.43 0.40 - 4.50 mIU/L [facility] Blood Blood / Unknown 09/18/2024 1 1:26 AM EST 09/18/2024 11:27 AM EST Narrative [facility] - 09/19/2024 4:33 AM EST FASTING:NO Marie Shaw PA-C LAB - BLOOD DRAW Final Resu lt [facility] [address] [address], [facility] [address] [address] * (ABNORMAL) BLOOD COUNT COMPLETE AUTO&AUTO DIFRNTL WBC (09/18/2024 11:26 AM EST) Pathologist [facility] WHITE BLOOD CELL COUNT 4.9 3.8 - 10.8 Thousand/ uL [facility] RED BLOOD CELL COUNT 3.93 3.80 - 5.10 Million/u L [facility] HEMOGLOBIN 11.6(L) 11.7 - 15.5 g/dL [facility] HEMATOCRIT 36.2 35.0 - 45.0 % [facility] MCV 92.1 80.0 - 100.0 fL [facility] MCH 29.5 27.0 - 33.0 pg [facility] MCHC 32.0 32.0 - 36.0 g/dL [facility] Comment: For adults, a slight decrease in the calculated MCHC value (in the range of 30 to 32 g/dL) is most likely not clinically significant; however, it should be interpreted with caution in correlation with other red cell parameters and the patient's clinical condition. RDW 12.7 11.0 - 15.0 % [facility] PLATELET COUNT 207 140 - 400 Thousand/ uL [facility] MPV 11.3 7.5 - 12.5 fL [facility] ABSOLUTE NEUTROPHILS 2,592 1,500 - 7,800 cells/uL [facility] ABSOLUTE LYMPHOCYTES 1,784 850 - 3,900 cells/uL [facility] ABSOLUTE MONOCYTES 343 200 - 950 cells/uL [facility] ABSOLUTE EOSINOPHILS 132 15 - 500 cells/uL [facility] ABSOLUTE BASOPHILS 49 0 - 200 cells/uL [facility] NEUTROPHILS PCT 52.9 % [facility] LYMPHOCYTES 36.4 % [facility] AG[facility]eller[facility] MONOCYTES 7.0 % [facility] [employer] [facility] EOSINOPHILS 2.7 % [facility] AGNRJMetricsS [facility] BASOPHILS 1.0 % [facility] [employer] [facility] Blood Blood / Unknown 09/18/2024 1 1:26 AM EST 09/18/2024 11:27 AM EST Narrative [facility] - 09/19/2024 4:33 AM EST FASTING:NO Marie Shaw PA-C LAB - BLOOD DRAW Edited Res ult - Final [facility] [address] [address], [facility] [address] [address] * LIPID PANEL (09/18/2024 11:26 AM EST) CHOLESTEROL, TOTAL 154 <200 mg/dL [facility] HDL CHOLESTEROL 56 > OR = 50 mg/dL [facility] TRIGLYCERIDES 59 <150 mg/dL [facility] LDL-CHOLESTEROL 84 99 mg/dL (calc) [facility] Comment: Reference range: <100 Desirable range <100 mg/dL for primary prevention; ?? <70 mg/dL for patients with CHD or diabetic patients with > or = 2 CHD risk factors. LDL-C is now calculated using the Galileo calculation, which is a validated novel method providing better accuracy than the Friedewald equation in the estimation of LDL-C. Junior SULTANA et al. DUANE. 2013;310(19): 7735-9879 (http://education.Hashgo/faq/MUT186) CHOL/HDLC RATIO 2.8 <5.0 (calc) [facility] NON-HDL CHOLESTEROL 98 <130 mg/dL (calc) [facility] Comment: For patients with diabetes plus 1 major ASCVD risk factor, treating to a non-HDL-C goal of <100 mg/dL (LDL-C of <70 mg/dL) is considered a therapeutic option. Blood Blood / Unknown 09/18/2024 1 1:26 AM EST 09/18/2024 11:27 AM EST Narrative [facility] - 09/19/2024 4:33 AM EST FASTING:NO us Marie Shaw PA-C LAB - BLOOD DRAW Final Resu lt [facility] [address] [address], [facility] [address] [place] [address] * (ABNORMAL) COMPREHENSIVE METABOLIC PANEL (09/18/2024 11:26 AM EST) GLUCOSE 94 65 - 139 mg/dL [facility] Comment: ?Non-fasting reference interval UREA NITROGEN (BUN) 13 7 - 25 mg/dL [facility] CREATININE (blood) 1.15(H) 0.60 - 1.00 mg/dL [facility] EGFR 49(L) > OR = 60 mL/min/1. 73m2 [facility] BUN/CREATININE RATIO 11 6 - 22 (calc) [facility] SODIUM 140 135 - 146 mmol/L [facility] POTASSIUM 4.0 3.5 - 5.3 mmol/L [facility] CHLORIDE 102 98 - 110 mmol/L [facility] CARBON DIOXIDE 29 20 - 32 mmol/L [facility] CALCIUM 9.5 8.6 - 10.4 mg/dL [facility] PROTEIN, TOTAL 7.5 6.1 - 8.1 g/dL [facility] ALBUMIN 4.5 3.6 - 5.1 g/dL [facility] GLOBULIN 3.0 1.9 - 3.7 g/dL (calc) [facility] ALBUMIN/GLOBULI N RATIO 1.5 1.0 - 2.5 (calc) [facility] BILIRUBIN, TOTAL 0.6 0.2 - 1.2 mg/dL [facility] ALKALINE PHOSPHATASE 71 37 - 153 U/L [facility] AST 16 10 - 35 U/L [facility] ALT 7 6 - 29 U/L [facility] Blood Blood / Unknown 09/18/2024 1 1:26 AM EST 09/18/2024 11:27 AM EST Narrative [facility] [employer] - 09/19/2024 4:33 AM EST FASTING:NO Marie Shaw PA-C LAB - BLOOD DRAW Final Resu lt Performing Organization Address [facility] Co de Phone Number [facility] [address] [address], [facility] [address] [address] * HEPATITIS C AB W/RFLX HCV RNA, QT, RT PCR (11/01/2023 1:48 PM EDT) HEPATITIS C ANTIBODY NON-REACT MOISE NON-REACT MOISE [facility] Comment: HCV antibody was non-reactive. There is no laboratory evidence of HCV infection. In most cases, no further action is required. However, if recent HCV exposure is suspected, a test for HCV RNA (test code 79222) is suggested. For additional information please refer to http://education.Marginize/faq/ZNW52e6 (This link is being provided for informational/ educational purposes only.) Blood Blood / Unknown 11/01/2023 1 :48 PM EDT 11/01/2023 1:49 PM EDT Marie Shaw PA-C LAB - BLOOD DRAW Edited Res ult - Final Performing Organization Address [facility] Co de Phone Number [facility] [address] [address], [facility] [address] [address] from Last 3 Months or Most Recently Relevant to Health Maintenance Insurance [place] [employer] [place] Care Teams Per Diem Relationship Specialty Start Date End Date Marie Shaw PA-C [address] [place] [phone] PCP - General Primary Care 10/29/23
== END 2024-11-09 11:42 | disposition home or self-care (01) ==
LOC: HO.RHE 11:00
PROVIDERS: PCP Student in an Organized Health Care Education/Training Program; Visit Provider Student in an Organized Health Care Education/Training Program
DX: M17.0 Bilateral primary osteoarthritis of knee (principal)
CPT/HCPCS: 20610; 99213

== ENCOUNTER → 2024-11-09 11:00 | Outpatient (BNVA) | payer MEDICAID, OTHER, SELFPAY | PROVIDERS: PCP Student in an Organized Health Care Education/Training Program; Visit Provider Student in an Organized Health Care Education/Training Program | DX: M17.0 Bilateral primary osteoarthritis of knee (principal); M15.9 Polyosteoarthritis, unspecified; M16.0 Bilateral primary osteoarthritis of hip | CPT/HCPCS: 20610; 99212; J3300 ==